=== PATIENT | female | born 1940 | race Caucasian/White ===

== ENCOUNTER → 2016-11-29 | Outpatient (CLI) | payer MEDICARE ==
[~2016-11-29] MED LIST: AC500T; ACET-1742; MSL400TEC; OMG1KC; PRM25T PO; TYLENOL ARTHRITIS
--- NOTE | 2016-11-29 11:42 | Diagnostic Imaging Report ---
INDICATION: Left hip pain x2 weeks. FINDINGS: Two views of the left hip show no fracture, dislocation or other acute abnormalities. Joint space is well maintained. Articular surfaces are smooth. IMPRESSION: Negative left hip. Dictated by: Dictated on workstation # [id number]
== END ==
LOC: RAD 11:06
PROVIDERS: ATTEND Family Medicine
DX: M25.552 Pain in left hip (principal)
CPT/HCPCS: 73502

== ENCOUNTER → 2017-07-11 | Outpatient (CLI) | payer MEDICARE ==
--- NOTE | 2017-07-14 09:11 | Diagnostic Imaging Report ---
Bilateral screening mammogram 2D views with tomosynthesis The current study was also evaluated with a Computer Aided Detection (CAD) system. Indication: Screening. No current complaints stated on the questionnaire. COMPARISON: 07/04/2016. Findings: The breasts are composed of suggested dense parenchyma which may decrease mammographic sensitivity. Vascular calcifications seen. Allowing for technique and positional differences, no suspicious change is seen. IMPRESSION: No significant change. ACR BI-RADS Category 2: Benign findings. Result letter will be mailed to the patient. Note: At least 10% of breast cancer is not imaged by mammography. Dictated by: Dictated on workstation # [id number]
== END ==
LOC: RAD 10:00
PROVIDERS: ATTEND Family Medicine
DX: Z12.31 Encounter for screening mammogram for malignant neoplasm of breast (principal)
CPT/HCPCS: 77067

== ENCOUNTER → 2018-07-23 | Outpatient (CLI) | payer MEDICARE ==
--- NOTE | 2018-07-23 18:33 | Diagnostic Imaging Report ---
EXAMINATION: Digital mammogram bilateral screening with 3D tomosynthesis and computer-aided detection (CAD) system. This study was compared to the prior exams of 07/11/2017, 07/04/2016, and 06/23/2015. At this time, there are no current complaints. FINDINGS: The fibroglandular tissue in both breasts is heterogeneously dense. This does limit the sensitivity of this exam. Overall, there does not appear to have been any significant change when compared to the prior study. No primary or secondary sign of malignancy is noted. 3D tomographic images fail to show any sign of malignancy. IMPRESSION: There is no radiographic evidence for malignancy. ACR BI-RADS Category 1: Negative. Result letter will be mailed to the patient. Note: At least 10% of breast cancer is not imaged by mammography. Dictated by: Dictated on workstation # [id number]
== END ==
LOC: RAD 10:51
PROVIDERS: ATTEND Family Medicine
DX: Z12.31 Encounter for screening mammogram for malignant neoplasm of breast (principal)
CPT/HCPCS: 77067

== ENCOUNTER 2020-05-06 13:23 | Emergency (ER) | payer MEDICARE ==
[~2020-05-06] VITALS: Ht 165.1 cm; Wt 50.0 kg
[2020-05-06] MEDS ORDERED: TETANUS,DIPTH,PERTUSS P/F (BOOSTRIX) 0.5 ML VIAL IM ONE (14:00)
--- NOTE | 2020-05-06 14:23 | NUR ---
RING CUT OFF BY DR WELCH.
--- NOTE | 2020-05-06 14:30 | ED Upper Extremity ---
General Chief Complaint: Laceration Stated Complaint: DOG BITE - L MIDDLE FINGER Nursing Triage Note: AMB TO ROOM WITH LACERATION TO L 4TH FINGER WAS BITTEN BY HER DOG. REPORTS THAT SHE WAS GETTING A PIECE OF GRASS OFF HIS SIDE WHEN HE BITE HER. Nursing Sepsis Screen: No Definite Risk Source: patient Exam Limitations: no limitations History of Present Illness Date Seen by Provider: May 06, 2020 Time Seen by Provider: 13:36 Initial Comments The patient presents ER by private conveyance from home with chief complaint that just prior to arrival she was pulling a piece of grass off of her dogs back which startled the dog turned around and bit her on her right hand third and fourth digits. She has full range of motion in her hands and no loss of sensation. She says the dog is up-to-date on its rabies vaccinations but she has not had a tetanus vaccination in the last 5 years. No injury elsewhere. Not on blood thinners. No diabetes. Allergies and Home Medications Allergies Coded Allergies: Aspirin (Unverified Allergy, Mild, 08/10/09) Naproxen (Unverified Allergy, Mild, 08/10/09) Ibuprofen (Unverified Adverse Reaction, Unknown, DOESN'T TAKE DUE TO BLEEDING POTENTIAL, 06/27/09) Home Medications Promethazine Hcl 25 Mg Tablet, 1 TAB PO QID PRN Prescribed by: MARIA GUADALUPE LANDIN on 10/25/11 0148 Patient Home Medication List Home Medication List Reviewed: Yes Review of Systems Constitutional: No chills, No diaphoresis EENTM: No ear discharge, No ear pain Respiratory: No cough, No phlegm, No short of breath Cardiovascular: No edema, No Hx of Intervention, No syncope Gastrointestinal: No abdominal pain, No constipation, No diarrhea Genitourinary: No discharge, No dysuria Musculoskeletal: No back pain, No joint pain All Other Systems Reviewed Negative Unless Noted: Yes Past Swzlubx-Qipqrm-Qblusz Hx Patient Social History Alcohol Use: Denies Use Recreational Drug Use: No Smoking Status: Never a Smoker Recent Foreign Travel: No Contact w/Someone Who Travel: No Recent Infectious Disease Expo: No Recent Hopitalizations: Yes (GI bleed Hyst in 1979, anterior repair approx 2003) Immunizations Up To Date Date of Influenza Vaccine: Apr 20, 2011 Past Medical History Surgeries: Yes Respiratory: No Cardiac: No Neurological: No Reproductive Disorders: No Sexually Transmitted Disease: No Gastrointestinal: Yes Musculoskeletal: Yes (R rotator cuff tear) Endocrine: Yes Psychosocial: No Blood Disorders: No Physical Exam Vital Signs Vital Signs - First Documented 05/06/20 13:51 Temp 36.9 Pulse 78 Resp 18 B/P (MAP) 171/90 (117) Pulse Ox 98 O2 Delivery Room Air Capillary Refill : Less Than 3 Seconds Height, Weight, BMI Height: '" Weight: lbs. oz. kg; 18.00 BMI Method:Stated General Appearance: WD/WN, no apparent distress HEENT: PERRL/EOMI, pharynx normal Neck: full range of motion, normal inspection Cardiovascular: normal peripheral pulses, regular rate, rhythm Respiratory: no respiratory distress, no accessory muscle use Hand: normal ROM, Right, laceration (superficial lacerations approximately 1/2- 1 cm long 3 on the dorsum of the third and fourth digits of the right hand.) Neurologic/Psychiatric: no motor/sensory deficits, alert, oriented x 3 Procedures/Interventions Wound Location: Upper Extremities Other Wound Location Right hand middle finger and ring finger Wound's Depth, Shape: superficial, linear Wound Explored: no foreign body removed Irrigated w/ Saline (ccs): 100 Betadine Prep?: Yes Anesthesia: 1% Lidocaine Volume Anesthetic (ccs): 1 Wound Debrided: minimal Other Closure Supply: Wound Adhesive Progress/Results/Core Measures Results/Orders My Orders Orders - JAVIER WELCH Pertuss(Acell),Tet Adult (Boostrix (05/06/20 14:00) Vital Signs/I&O 05/06/20 13:51 Temp 36.9 Pulse 78 Resp 18 B/P (MAP) 171/90 (117) Pulse Ox 98 O2 Delivery Room Air Blood Pressure Mean: 117 Progress Progress Note : Time: 14:26 Progress Note The wounds were thoroughly cleaned with soap and water and closed with glue as the skin was too thin to hold a suture. Tetanus vaccination was given. 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 Departure Impression Primary Impression: Dog bite of extremity Disposition: 01 HOME, SELF-CARE Condition: Stable Departure-Patient Inst. Decision time for Depature: 14:28 Referrals: TERESA AUQINO MD (PCP/Family) Primary Care Physician Patient Instructions: Laceration Repair With Glue (DC), Animal Bites (DC) Add. Discharge Instructions: Keep the skin clean with regular soap and water. If it starts to bleed you may apply direct pressure and raise it above the level of your heart for 20 minutes. The glue will flake off on its own over the next week. Keflex one capsule 3 times a day for the next 5 days to prevent infection. If you start to have redness going up your hand or wrist, fever, nausea or other worrisome symptoms then return to the ER for further examination or to your primary care doctor. Observe your dog for the next 10 days for any aggressive, unusual behavior. If this is the case then contacted animal control for help and return to the nearest ER for rabies prophylaxis treatment. All discharge instructions reviewed with patient and/or family. Voiced understanding. Scripts Cephalexin (Cephalexin) 500 Mg Tablet 500 MG PO TID for 5 Days, #15 TAB 0 Refills Prov: JAVIER WELCH 05/06/20 JAVIER WELCH May 06, 2020 14:30
[2020-05-06] MEDS ORDERED: CEPH500T PO (14:32)
[2020-05-06 14:39] VITALS: BP 171/90
== END 2020-05-06 14:38 | disposition home or self-care (01) ==
LOC: EDUNIT# 13:23 → ER 13:24
DX: S61.212A Laceration without foreign body of right middle finger without damage to nail, initial encounter (principal); S61.214A Laceration without foreign body of right ring finger without damage to nail, initial encounter; Z23 Encounter for immunization; Z88.6 Allergy status to analgesic agent; Z88.8 Allergy status to other drugs, medicaments and biological substances; W54.0XXA Bitten by dog, initial encounter
CPT/HCPCS: 12001; 90715

== ENCOUNTER 2020-05-08 09:45 | Emergency (ER) | payer MEDICARE ==
[~2020-05-08] VITALS: Ht 160 cm; Wt 49.8 kg
[~2020-05-08 09:45] MED LIST changes: +CEPH500T PO
[2020-05-08] MEDS ORDERED: cefTRIAXone 1,000 MG/2.86 ml vial (IM ONLY) IM STA (09:52)
--- NOTE | 2020-05-08 09:59 | ED Integumentary General ---
General Chief Complaint: Skin/Wound Problems Stated Complaint: L HAND DOG BITE Source: patient Exam Limitations: no limitations History of Present Illness Date Seen by Provider: May 08, 2020 Time Seen by Provider: 09:40 Initial Comments Patient presents ER by private conveyance with chief complaint that she was here in the ER 2 days ago after her own dog bit her. Her dog is still behaving normally. She is now having a little bit more increasing redness and swelling out of one of the small nicks on her fourth finger dorsal side left hand. She is taking the cephalexin as prescribed. She does not have diabetes. She denies fevers chills nausea vomiting. She denies decreased range of motion but she is having some swelling and redness going up her left hand and left forearm. Allergies and Home Medications Allergies Coded Allergies: Aspirin (Unverified Allergy, Mild, 08/10/09) Naproxen (Unverified Allergy, Mild, 08/10/09) Ibuprofen (Unverified Adverse Reaction, Unknown, DOESN'T TAKE DUE TO BLEEDING POTENTIAL, 06/27/09) Home Medications Cephalexin 500 Mg Tablet, 500 MG PO TID Prescribed by: JAVIER WELCH on 05/06/20 1432 Promethazine Hcl 25 Mg Tablet, 1 TAB PO QID PRN Prescribed by: MARIA GUADALUPE LANDIN on 10/25/11 2151 Patient Home Medication List Home Medication List Reviewed: Yes Review of Systems Review of Systems Constitutional: No chills, No fever, No malaise EENTM: No ear discharge, No ear pain Respiratory: No cough, No short of breath Cardiovascular: No chest pain, No edema Gastrointestinal: No abdominal pain, No nausea, No vomiting Genitourinary: No discharge, No dysuria Musculoskeletal: No back pain, No joint pain Skin: see HPI All Other Systems Reviewed Negative Unless Noted: Yes Past Upfwyro-Bdiqni-Izvpgg Hx Patient Social History Alcohol Use: Denies Use Recreational Drug Use: No Smoking Status: Never a Smoker Recent Foreign Travel: No Contact w/Someone Who Travel: No Recent Hopitalizations: Yes (GI bleed Hyst in 1979, anterior repair approx 2003) Immunizations Up To Date Date of Influenza Vaccine: Apr 20, 2011 Past Medical History Surgeries: Yes Respiratory: No Cardiac: No Neurological: No Reproductive Disorders: No Sexually Transmitted Disease: No Gastrointestinal: Yes Musculoskeletal: Yes (R rotator cuff tear) Endocrine: Yes Psychosocial: No Blood Disorders: No Physical Exam Vital Signs Capillary Refill : General Appearance: WD/WN, no apparent distress HEENT: PERRL/EOMI, pharynx normal Cardiovascular: normal peripheral pulses, regular rate, rhythm Respiratory: no respiratory distress, no accessory muscle use Neurologic/Psychiatric: alert, normal mood/affect, oriented x 3 Skin: other (erythema over the fourth knuckle left hand running up the left hand and left forearm. Warmth and tenderness.) Progress/Results/Core Measures Results/Orders My Orders Orders - JAVIER WELCH Ceftriaxone For Im Use (Rocephin For Im (05/08/20 09:52) Lidocaine 1% Inj 20 Ml (Xylocaine 1% Inj (05/08/20 10:00) Progress Progress Note : Time: 09:59 Progress Note Plan to give a dose of Rocephin. Aseptic vital signs. We discussed outpatient antibiotic treatment with her and would like to broaden her coverage from septal sports something that would cover for MRSA as well as gram negatives. Doxycycline will be prescribed. Follow up later this week with Dr. Aquino. Departure Impression Primary Impression: Dog bite of extremity Additional Impressions: Cellulitis Qualified Codes: L03.114 - Cellulitis of left upper limb Wound infection, posttraumatic Disposition: 01 HOME, SELF-CARE Condition: Stable Departure-Patient Inst. Decision time for Depature: 10:00 Referrals: TERESA AQUINO MD (PCP/Family) Primary Care Physician Patient Instructions: Cellulitis (Skin Infection), Adult (DC) Add. Discharge Instructions: Keep the wound clean with regular soap and water. You may apply gauze dressing or Band-Aid over the wound to catch the drainage. Start taking doxycycline twice daily with food for the next week. Follow-up with your primary care provider later this week. Return to the ER if you develop fevers, vomiting, inability to tolerate the medication or worsening symptoms. Expect improvement over the next 2-3 days on antibiotics. All discharge instructions reviewed with patient and/or family. Voiced understanding. Scripts Doxycycline Hyclate (Doxycycline Hyclate) 100 Mg Tablet 100 MG PO BID for 7 Days, #14 TAB 0 Refills Prov: JAVIER WELCH 05/08/20 Copy Copies To 1: TERESA AQUINO MD, TITUS J May 08, 2020 09:59
[2020-05-08] MEDS ORDERED: LIDOCAINE 1% INJ 20 ML 20 ML VIAL INJ ONE (10:00)
[2020-05-08] MEDS ORDERED: DOXY100T2 PO (10:01)
[2020-05-08 10:10] VITALS: BP 132/90
== END 2020-05-08 10:09 | disposition home or self-care (01) ==
LOC: EDUNIT# 09:45 → ER 09:46
DX: S51.852A Open bite of left forearm, initial encounter (principal); L03.114 Cellulitis of left upper limb; Z88.6 Allergy status to analgesic agent; Z88.8 Allergy status to other drugs, medicaments and biological substances; W54.0XXA Bitten by dog, initial encounter

== ENCOUNTER → 2021-11-05 | Outpatient (CLI) | payer MEDICARE ==
[~2021-11-05] MED LIST changes: +DOXY100T2 PO
--- NOTE | 2021-11-05 17:41 | Diagnostic Imaging Report ---
INDICATION: Back pain COMPARISON: None FINDINGS: 3 views of the lumbar column demonstrate normal alignment. There is no subluxation or fracture. Mild degenerative changes seen with scoliosis. No osseous lesion. IMPRESSION: Mild degenerative disc disease and facet joint arthropathy with scoliosis. Dictated by: Dictated on workstation # [id number]
== END ==
LOC: RAD 11:04
PROVIDERS: ATTEND Family Medicine
DX: M47.816 Spondylosis without myelopathy or radiculopathy, lumbar region (principal); M51.36 Other intervertebral disc degeneration, lumbar region; M41.86 Other forms of scoliosis, lumbar region
CPT/HCPCS: 72100

== ENCOUNTER → 2021-12-18 | Outpatient (RCR) | payer MEDICARE | END | disposition home or self-care (01) | PROVIDERS: ATTEND Family Medicine | DX: M41.85 Other forms of scoliosis, thoracolumbar region (principal); I10 Essential (primary) hypertension ==

== ENCOUNTER → 2022-01-17 | Outpatient (RCR) | payer MEDICARE | END | disposition home or self-care (01) | PROVIDERS: ATTEND Family Medicine | DX: M41.85 Other forms of scoliosis, thoracolumbar region (principal); I10 Essential (primary) hypertension ==

== ENCOUNTER 2022-02-14 08:23 | Outpatient (RCR) | payer MEDICARE | END 2022-02-17 | disposition home or self-care (01) | PROVIDERS: ATTEND Family Medicine | DX: M41.85 Other forms of scoliosis, thoracolumbar region (principal); I10 Essential (primary) hypertension ==

== ENCOUNTER 2022-02-27 10:26 | Outpatient (RCR) | payer MEDICARE | END 2022-02-27 15:56 | disposition home or self-care (01) | PROVIDERS: ATTEND Family Medicine | DX: M41.85 Other forms of scoliosis, thoracolumbar region (principal); I10 Essential (primary) hypertension ==

== ENCOUNTER → 2023-03-18 | Outpatient (CLI) | payer MEDICARE ==
--- NOTE | 2023-03-18 11:06 | Diagnostic Imaging Report ---
INDICATION: Screening DEXA scan COMPARISON: None available FINDINGS: AP Spine L1-L4: [BMD (g/cm2): 0.957] [T-Score: -2.0] [Z-Score: 0.4] [BMD Previous: 0.959] [BMD % Change: -0.2] LT Hip Neck: [BMD (g/cm2): 0.753] [T-Score: -2.0] [Z-Score: 0.6] LT Hip Total: [BMD (g/cm2):0.732] [T-Score:-2.2] [Z-Score: 0.4] [BMD Previous: 0.814] [BMD % Change: -10.1*] RT Hip Neck: [BMD (g/cm2):0.734] [T-Score:-2.2] [Z-Score:0.5] RT Hip Total: [BMD (g/cm2):0.717] [T-score:-2.3] [Z-Score:0.3] [BMD Previous:0.825] [BMD % Change:-13.1*] *Indicates significant change from prior examination based on 95% confidence level. World Health Organization criteria for BMD interpretation classify patients as Normal (T-score at or above -1.0), Osteopenic (T-score between -1.0 and -2.5) or Osteoporotic (T-score at or below -2.5). LIMITATIONS AND MODIFICATION: None. FRACTURE RISK (FRAX SCORE): The ten year probability of (%): Major Osteoporotic Fracture: [14.6] Hip Fracture: [5.1] IMPRESSION: 1. Osteopenia (Low bone mass). 2. Baseline examination. 3. See below National Osteoporosis Foundation guidelines on when to potentially initiate pharmacologic therapy. Based on the National Osteoporosis Foundation Guidelines, pharmacologic treatment should be initiated in any of the following, unless clinical conditions suggest otherwise: * Any patient with prior fragility fracture of the hip or vertebrae. A spine fracture indicates 5X risk for subsequent spine fracture and 2X risk for subsequent hip fracture. * Osteoporosis (T-score <-2.5). * Postmenopausal women and men age 50 and older with low bone mass/osteopenia (T-score between -1.0 and -2.5) by DXA and 10-year major osteoporotic fracture greater than 20% or a 10-year probability of hip fracture greater than 3%. These fracture risks are supplied above in the FRAX score, if applicable. * Clinician judgement and/or patient preferences may indicate treatment for people with 10-year fracture probabilities above or below these levels. Dictated by: Dictated on workstation # [id number]
== END ==
LOC: RAD 09:55
PROVIDERS: ATTEND Family Medicine
DX: M85.80 Other specified disorders of bone density and structure, unspecified site (principal); M40.209 Unspecified kyphosis, site unspecified
CPT/HCPCS: 77080